=== PATIENT | male | born 1960 | race Hispanic/Latino ===

== ENCOUNTER 2021-04-10 14:18 | Emergency (ER) | payer OTHER ==
[~2021-04-10] VITALS: Ht 175.3 cm; Wt 93.0 kg
[2021-04-10] MEDS ORDERED: HYDROCODONE/ACETAMINOPHEN 10/325 MG TAB ONE (14:52)
[2021-04-10] MEDS ORDERED: MELO7.5T12 PO (15:06)
[2021-04-10 15:29] VITALS: BP 142/88
[2021-04-10] MEDS ORDERED: HYDROCODONE/ACETAMINOPHEN 10/325 MG TAB PO ONE (16:30)
== END 2021-04-10 15:25 | disposition home or self-care (01) ==
LOC: EDH 14:18
DX: S90.02XA Contusion of left ankle, initial encounter (principal); S90.32XA Contusion of left foot, initial encounter; E78.00 Pure hypercholesterolemia, unspecified; I11.9 Hypertensive heart disease without heart failure; Z79.1 Long term (current) use of non-steroidal anti-inflammatories (NSAID); E66.9 Obesity, unspecified; Z68.30 Body mass index [BMI] 30.0-30.9, adult; X58.XXXA Exposure to other specified factors, initial encounter; Y93.89 Activity, other specified; Y92.89 Other specified places as the place of occurrence of the external cause; Y99.8 Other external cause status
CPT/HCPCS: 73610; 73630

== ENCOUNTER 2023-01-23 02:07 | Emergency (ER) | payer OTHER ==
[~2023-01-23] VITALS: Ht 172.7 cm; Wt 100.7 kg
[~2023-01-23 02:07] MED LIST: MELO7.5T12 PO
[2023-01-23] MEDS ORDERED: IBUP-1493 PO (02:26)
[2023-01-23] MEDS ORDERED: AMOX500C2 PO (02:26)
[2023-01-23] MEDS ORDERED: AMOXICILLIN 500 MG CAPSULE PO ONE (02:30)
[2023-01-23] MEDS ORDERED: KETOROLAC 30MG VIAL (30MG/ML) IM ONE (02:30)
[2023-01-23 02:46] VITALS: BP 142/80; PULSE 82; RESP 17; O2SAT 99
== END 2023-01-23 02:56 | disposition home or self-care (01) ==
LOC: EDH 02:07
DX: K04.7 Periapical abscess without sinus (principal); I10 Essential (primary) hypertension; E78.00 Pure hypercholesterolemia, unspecified; Z98.890 Other specified postprocedural states
CPT/HCPCS: 99283; 96372; J1885